=== PATIENT | female | born 1945 | race Caucasian/White ===

== ENCOUNTER 2016-04-25 20:42 | Inpatient (IN) | payer MEDICARE, OTHER ==
[~2016-04-25] VITALS: Ht 170.2 cm; Wt 77.2 kg
[2016-04-25 20:50] VITALS: BP 146/63; PULSE 67; RESP 18; TEMP 98.3; O2SAT 95
--- NOTE | 2016-04-25 21:08 | PD ---
HPI Chief Complaint: Abnormal Results Time Seen by Provider: 20:45 Travel History International Travel<30 days: No Contact w/Intl Traveler<30days: No Traveled to known affect area: No History of Present Illness HPI The patient is 71 year old female who presents to the [facility] emergency department with a history of while walking to the beach tripping over a rock with her left foot landing on the right side of her head and right arm. The patient was initially transported to [facility]. The patient denies having any loss of consciousness, however she does not remember the fall. The patient reports having a headache and right arm pain. The patient reports that she has recently been started on a baby aspirin daily and is also on Plavix 75 mg a day. The patient denies having any open wounds. The patient was with her when this occurred. He denies her having any loss of consciousness. He reports that she has had repetitive questioning. The patient reports that she has a history of prior stroke with residual weakness of the right arm and right leg. The patient denies having any chest pain, shortness of breath. She reports having right-sided neck pain, however a CT scan of her C-spine was read as negative by the reading radiologist over at the [facility]. She denies having any other extremity pain other than in the right arm which is currently splinted. She denies having any abdominal pain. The patient is unsure when her tetanus was last updated. [facility] Past Medical History Narrative Medical The patient's past medical history is significant for cerebrovascular accident year and a half ago, history of hyperlipidemia, hypertension, chronic pain in the right upper extremity related to her prior stroke, history of acid reflux, history of depression Depression: Yes High Cholesterol: Yes Cerebrovascular Accident: Yes (no deficits) GERD: Yes Hypertension: Yes : 2 Para: 2 Past Surgical History Narrative Surgical The patient's past surgical history is significant for a left finger pinning after fracture. Social History Alcohol Use: Yes (occassional) Tobacco Use: No Substance Use: No Allergies-Medications (Allergen,Severity, Reaction): Coded Allergies: Nitrofurantoin (Verified Allergy, Severe, Cough, 04/26/16) Reported Meds & Prescriptions Reported Meds & Active Scripts Active Reported Hydrochlorothiazide 25 Mg Tab 25 Mg PO DAILY Propranolol (Propranolol HCl) 20 Mg Tab 20 Mg PO DAILY Losartan (Losartan Potassium) 25 Mg Tab 25 Mg PO DAILY Clopidogrel (Clopidogrel Bisulfate) 75 Mg Tab 75 Mg PO DAILY Venlafaxine ER 24 HR (Venlafaxine HCl) 75 Mg Tab 75 Mg PO DAILY Simvastatin 40 Mg Tab 40 Mg PO HS Venlafaxine ER 24 HR (Venlafaxine HCl) 37.5 Mg Tab 37.5 Mg PO HS Review of Systems Except as stated in HPI: all other systems reviewed are Neg General / Constitutional: No: Fever Eyes: No: Visual changes HENT: Positive: Headaches, Neck Pain (right-sided neck), No: Neck Stiffness Cardiovascular: No: Chest Pain or Discomfort Respiratory: No: Shortness of Breath Gastrointestinal: No: Abdominal Pain Genitourinary: No: Dysuria Musculoskeletal: Positive: Myalgias, Arthralgias, Limited ROM, Edema, Pain Skin: No Rash Neurologic: No: Weakness Psychiatric: No: Depression Endocrine: No: Polydipsia Hematologic/Lymphatic: No: Easy Bruising Physical Exam Narrative General: The patient is a well-developed well-nourished female in no acute distress. Head and Neck exam: Head is normocephalic, evidence of some swelling, ecchymosis developing over the right cheek. There is no crepitus or step-off, no increased facial bone motility. Eyes: EOMI, pupils are equal round and reactive to light. Nose: Midline septum with pink mucous membranes Mouth: Dentition unremarkable. Moist mucus membranes. Posterior oropharynx is not erythematous. No tonsillar hypertrophy. Uvula midline. Airway patent. Neck: No palpable lymphadenopathy. No nuchal rigidity. No thyromegaly. The patient has tenderness on palpation along the right sternocleidomastoid muscle, however no spasm noted. No spinous process tenderness to palpation, no step- off or crepitus, no erythema or ecchymosis. Cardiovascular: Regular rate and rhythm without murmurs, gallops, or rubs. Lungs: Clear to auscultation bilaterally. No wheezes, rhonchi, or rales. Abdomen: Soft, without tenderness to palpation in all 4 quadrants of the abdomen. No guarding, rebound, or rigidity. Normal bowel sounds are audible. Extremities: No clubbing or cyanosis. The patient has some mild edema of the right hand. 2 + pulses in all 4 extremities. The patient has along the right arm splint in place. The patient has less than 3 second capillary refill of her digits. She has intact sensation over all fingertips. She is able to move her fingers without difficulty. Back: No spinous process tenderness to palpation. No costovertebral angle tenderness to palpation. Neurologic Exam: She is oriented to person, place, time, however not the events surrounding the accident and she cannot recall them. Cranial nerves 2-12 were intact on exam. Strength is 5/5 in all 4 extremities. No sensory deficits noted. Skin Exam: No rash noted. Intact skin that is warm and dry. Data Data Last Documented VS Vital Signs Date Time Temp Pulse Resp B/P Pulse Ox O2 Delivery O2 Flow Rate FiO2 04/25/16 20:50 98.3 67 18 146/63 95 Orders Type And Screen (04/25/16 21:05) Platelet Pheresis (04/25/16 21:05) Blood Product Administration .UPON TRANSFUSION (04/25/16 21:05) Sodium Chlor 0.9% 250 Ml Inj (Ns 250 Ml (04/25/16 21:15) Admit Order (Ed Use Only) (04/25/16 21:26) MDM Medical Decision Making Medical Screen Exam Complete: Yes Emergency Medical Condition: Yes Medical Record Reviewed: Yes Differential Diagnosis Evolving Intracranial hemorrhage, versus facial contusion, versus facial fracture Narrative Course During the course of the patients emergency department visit, the patients history, examination, and differential diagnosis were reviewed with the patient. The patient had IV access obtained and blood work sent for analysis. The records from [facility] were reviewed. A call was placed out to the accepting trauma surgeon, Dr. Turner. He will be seeing the patient in the emergency department. He requested that a 10 pack of platelets be ordered given the patient on Plavix and baby aspirin. I then spoke to the neurosurgeon on-call, Dr. Green regarding this patient's case. He will requested that the patient have a CT scan of the brain prior to going up to the intensive care unit to evaluate for possible evolving hemorrhage. The patient was provided a transfusion of platelets. The patients laboratory studies were reviewed from the [facility] and showed a sodium of 137, potassium 3.9, chloride 96, CO2 30, glucose 128, BUN 14 , creatinine 0.60, alkaline phosphatase 96, AST 26, ALT 18, total bilirubin 0.4. The patient's white blood cell count is 14.3, hemoglobin 13.2, platelets 225 with neutrophils of 87.3, lymphocytes 7.4. PT 13.1, PTT 26.2, INR 1.0. Radiology studies were reviewed from [facility] and revealed a CT scan of the brain shows a 1 cm area of acute intraparenchymal hemorrhage contusion in the posterior left frontotemporal region. There is also a suggestion of a subtle minimal acute right frontal area subdural hematoma with thickness of 2 mm , no hydrocephalus or midline shift. The patient has a left thalamic lacunar infarct age indeterminate possibly chronic. CT scan of the C-spine shows diffuse osseous demineralization without acute fracture, diffuse spondylosis with associated neural foraminal narrowing, CT scan of the facial bones shows no acute facial bone fracture, right humerus x-ray reveals osteopenia, comminuted displaced fractures involving the proximal radius and ulna. Chest x- ray shows no acute process, pelvic x-ray shows osteopenia with mild osteitis pubis, otherwise intact pelvis. The patients results were discussed with the patient, including the plan of care. I explained that further testing and/ or monitoring is indicated based on the patients history, examination, and/ or laboratory findings. Therefore, I recommended admission for additional evaluation. The patient expressed understanding and was agreeable with this plan. The patient was admitted to the hospital in guarded condition and sent to a bed under the care of the trauma surgeon, Dr. Turner Physician Communication Physician Communication The patient's case was discussed with Dr. Turner at approximately 9:05 PM. He requested that a 10 pack of platelets be ordered to be administered for the patient. He will be in to see the patient shortly. The patient's case was also discussed with Dr. Green, the neurosurgeon by speakerphone while he was in the OR regarding this patient's case. He did agree to see the patient consultation. He recommended a CT scan of the brain be repeated in this patient on the way up to the intensive care unit. Diagnosis Primary Impression: Intracranial hemorrhage Additional Impression: Closed right arm fracture Qualified Code: S42.301A - Closed right arm fracture, initial encounter Admitting Information Admitting Physician Requests: Admit Lenka Nascimento MD Apr 25, 2016 21:08
[2016-04-25] MEDS ORDERED: SODIUM CHLOR 0.9% 250 ML INJ 250 ML IV ONE (21:15)
[2016-04-25] MEDS ORDERED: GABA600T PO (21:15)
[2016-04-25] MEDS ORDERED: VENL75TA2 PO (21:15)
[2016-04-25] MEDS ORDERED: LOSA25TA PO (21:15)
[2016-04-25] MEDS ORDERED: VENL37.54 PO (21:15)
[2016-04-25] MEDS ORDERED: HYDR25TA5 PO (21:15)
[2016-04-25] MEDS ORDERED: PROP20TA3 PO (21:15)
[2016-04-25] MEDS ORDERED: SIMV40TA PO (21:15)
[2016-04-25] MEDS ORDERED: GABA300C5 PO (21:15)
[2016-04-25] MEDS ORDERED: CLOP75TA PO (21:15)
--- NOTE | 2016-04-25 22:15 | HHI.HP ---
HPI Service Critical Care Medicine Primary Care Physician Non-Staff Admission Diagnosis Intracranial hemorrhage, right arm fracture Diagnosis: Chief Complaint: Headache, Right arm pain Travel History International Travel<30 Days: No Contact w/Intl Traveler <30 Da: No Traveled to Known Affected Are: No History of Present Illness 71-year-old woman tripped and fell walking down the beach. She denies loss of consciousness but is amnestic of the event and was perseverating after it happened. She is evaluated at outside hospital where they found right radius and ulnar fracture as well as a 2 mm subdural hematoma. She was transferred to [place] for definitive care. Patient arrived alert and oriented she had right periorbital ecchymosis her right upper extremity was in a sling. Review of Systems Constitutional: DENIES: Diaphoretic episodes, Fatigue, Fever, Weight gain, Weight loss, Chills, Dizziness, Change in appetite, Night Sweats Endocrine: DENIES: Abnorml menstrual pattern, Heat/cold intolerance, Polydipsia , Polyuria, Polyphagia Eyes: DENIES: Blurred vision, Diplopia, Eye inflammation, Eye pain, Vision loss , Photosensitivity, Double Vision Ears, nose, mouth, throat: DENIES: Tinnitus, Hearing loss, Vertigo, Nasal discharge, Oral lesions, Throat pain, Hoarseness, Ear Pain, Running Nose, Epistaxis, Sinus Pain, Toothache, Odynophagia Respiratory: DENIES: Apneas, Cough, Snoring, Wheezing, Hemoptysis, Sputum production, Shortness of breath Cardiovascular: DENIES: Chest pain, Palpitations, Syncope, Dyspnea on Exertion , PND, Lower Extremity Edema, Orthopnea, Claudication Gastrointestinal: DENIES: Abdominal pain, Black stools, Bloody stools, Constipation, Diarrhea, Nausea, Vomiting, Difficulty Swallowing, Anorexia Genitourinary: DENIES: Abnormal vaginal bleeding, Dysmenorrhea, Dyspareunia, Sexual dysfunction, Urinary frequency, Urinary incontinence, Urgency, Hematuria , Dysuria, Nocturia, Vaginal discharge Musculoskeletal: COMPLAINS OF: Joint pain (right arm pain from the fall) Integumentary: DENIES: Abnormal pigmentation, Pruritus, Rash, Nail changes, Breast masses, Breast skin changes, Nipple discharge Hematologic/lymphatic: COMPLAINS OF: Bruising (right face) Immunologic/allergic: DENIES: Eczema, Urticaria Neurologic: COMPLAINS OF: Localized weakness (chronic pain related to her prior CVA) Psychiatric: COMPLAINS OF: Depression Past Family Social History Allergies: Coded Allergies: Nitrofurantoin (Verified Allergy, Unknown, 04/25/16) Past Medical History Stroke, hypertension, reflux, depression, right upper extremity neuropathy Past Surgical History Left hand surgery for a fracture Reported Medications Hydrochlorothiazide 25 Mg Tab 25 Mg PO DAILY Propranolol (Propranolol HCl) 20 Mg Tab 20 Mg PO DAILY Losartan (Losartan Potassium) 25 Mg Tab 25 Mg PO DAILY Clopidogrel (Clopidogrel Bisulfate) 75 Mg Tab 75 Mg PO DAILY Venlafaxine ER 24 HR (Venlafaxine HCl) 75 Mg Tab 75 Mg PO DAILY Simvastatin 40 Mg Tab 40 Mg PO HS Gabapentin 600 Mg Tab 600 Mg PO HS Gabapentin 300 Mg Cap 300 Mg PO DAILY Venlafaxine ER 24 HR (Venlafaxine HCl) 37.5 Mg Tab 37.5 Mg PO HS Family History Reviewed and not relevant Social History Denies alcohol tobacco or drug use Physical Exam Vital Signs Vital Signs Date Time Temp Pulse Resp B/P Pulse Ox O2 Delivery O2 Flow Rate FiO2 04/25/16 20:50 98.3 67 18 146/63 95 Physical Exam Open partial well-nourished 71-year-old woman in no acute distress Head - right periorbital ecchymosis pupils equal round reactive to light a short for movements intact sclerae nonicteric and conjunctiva is pink Neck - trachea is midline there is no swelling or palpable masses Chest - lungs clear to auscultation bilaterally, heart regular rate and rhythm, there is no chest wall tenderness or crepitus to palpation Abdomen - soft nontender nondistended Pelvis - stable nontender femoral pulses are palpable bilaterally Extremities - right upper extremity is in a splint, she has good capillary refill, no clubbing cyanosis or edema dorsalis pedis pulses are palpable bilaterally Psychiatric - mood and affect are appropriate Neurologic - cranial nerves II through XII appear grossly intact with no focal neurologic deficit, right upper extremity however is immobilized Assessment and Plan Assessment and Plan 71-year-old woman with a closed right radius and ulnar fracture and a subdural hematoma on aspirin and Plavix - Patient will be admitted to the trauma ICU for serial neurologic exams and continuous hemodynamic monitoring - Neurosurgery was consult and made aware of her condition should she deteriorate. A repeat head CT will be performed now and again in the morning to follow her subdural hematoma - Orthopedic surgery will be consulted regarding her radius and ulnar fractures , she'll be made nothing by mouth after midnight in anticipation of surgical intervention - Patient will be given IV pain medication and antiemetics as needed - She'll be placed on her home medications except for the aspirin and Plavix which will be held until cleared by neurosurgery to resume Code Status Full code Discussed Condition With Patient, at the bedside, ER nursing, ER attending Apolinar Turner MD Apr 25, 2016 22:15
[2016-04-25] MEDS ORDERED: MISCELLANEOUS NURSING INFORMATION XX SCH (22:30)
[2016-04-25] MEDS ORDERED: SODIUM CHLORIDE 0.9% FLUSH 5 ML FLUSH IVF PRN (22:30)
[2016-04-25] MEDS ORDERED: MAGNESIUM HYDROXIDE SUSP 30 ML CUP PO PRN (22:30)
[2016-04-25] MEDS ORDERED: CHLORHEXIDINE GLUCONATE 2 % 1 PACK (2 CLOTHS) TOP PRN (22:30)
--- NOTE | 2016-04-25 22:34 | RADRPT ---
EXAM DATE/TIME: 04/25/2016 22:07 [place] COMPARISON: No previous studies available for comparison. INDICATIONS : Fall with trauma to right side of head. RADIATION DOSE: 56.35 CTDIvol (mGy) MEDICAL HISTORY : Cerebrovascular disease. Hypertension. SURGICAL HISTORY : None. ENCOUNTER: Initial ACUITY: 1 day PAIN SCALE: 6/10 LOCATION: Right cranial TECHNIQUE: Multiple contiguous axial images were obtained of the head. Using automated exposure control and adj ustment of the mA and/or kV according to patient size, radiation dose was kept as low as reasonably a chievable to obtain optimal diagnostic quality images. FINDINGS: Faintly increased density measuring about 16 mm in size seen in the left posterior temporal lobe. The re are moderate severity, chronic areas of low attenuation in both hemispheres periventricular white matter. No evidence of an acute ischemic event. The skull is intact. CONCLUSION: 1. 16mm faintly increased density in the posterior left temporal lobe and may represent a small paren chymal contusion. An underlying partly calcified mass could appear similar. Clinical surveillance and a followup nonemergent MRI of the brain with and without contrast recommended. 2. Otherwise no evidence of an acute intracranial abnormality. Chronic white matter changes are noted . Antonio Lau MD on April 25, 2016 at 22:30 Board Certified Radiologist. This report was verified electronically.
[2016-04-25 23:05] VITALS: BP 148/69; PULSE 70; RESP 16; O2SAT 98
[2016-04-25] MEDS: ONDANSETRON HCL 4 MG/2 ML VIAL IV PRN (23:07)
[2016-04-25] MEDS: GABAPENTIN 300 MG CAP PO SCH (23:08)
[2016-04-25] MEDS: HYDROmorphone HCL PF 1 MG/ML VIAL IVP PRN (23:08)
[2016-04-25] MEDS: levETIRAcetam 500 MG TAB PO SCH (23:12)
--- NOTE | 2016-04-25 23:37 | PD.CONS ---
History of Present Illness Service Neurosurgery Consult Requested By Gen. surgery trauma service Reason for Consult Traumatic brain injury Primary Care Physician Non-Staff Diagnoses: History of Present Illness 71-year-old female who reportedly tripped and fell while walking on the beach this evening. No definite loss of consciousness reported. She was transferred from [facility] for evaluation after a CT scan of the head revealed a small subdural hematoma. She has also sustained a right radius and ulna fracture. She is being admitted to the surgery trauma service. No seizures or emesis reported. Review of Systems Constitutional: DENIES: Fatigue, Fever, Chills, Dizziness Eyes: DENIES: Blurred vision, Diplopia Ears, nose, mouth, throat: DENIES: Tinnitus, Hearing loss, Vertigo, Ear Pain, Running Nose Respiratory: DENIES: Apneas, Cough, Shortness of breath Cardiovascular: DENIES: Chest pain, Palpitations Gastrointestinal: DENIES: Abdominal pain, Constipation, Diarrhea, Nausea, Vomiting Musculoskeletal: COMPLAINS OF: Joint pain, Back pain, Neck pain Neurologic: COMPLAINS OF: Headache, Paresthesias, DENIES: Abnormal gait, Seizures, Speech Problems, Poor Balance Psychiatric: COMPLAINS OF: Confusion, DENIES: Anxiety Past Family Social History Allergies: Coded Allergies: Nitrofurantoin (Verified Allergy, Unknown, 04/25/16) Past Medical History Hypertension previous CVA-probable left thalamus per history with residual right facial and upper and lower extremity numbness and dysesthesia Depression GERD Hyperlipidemia Past Surgical History Previous hand surgery Reported Medications Reported Meds & Active Scripts Active Reported Hydrochlorothiazide 25 Mg Tab 25 Mg PO DAILY Propranolol (Propranolol HCl) 20 Mg Tab 20 Mg PO DAILY Losartan (Losartan Potassium) 25 Mg Tab 25 Mg PO DAILY Clopidogrel (Clopidogrel Bisulfate) 75 Mg Tab 75 Mg PO DAILY Venlafaxine ER 24 HR (Venlafaxine HCl) 75 Mg Tab 75 Mg PO DAILY Simvastatin 40 Mg Tab 40 Mg PO HS Gabapentin 600 Mg Tab 600 Mg PO HS Gabapentin 300 Mg Cap 300 Mg PO DAILY Venlafaxine ER 24 HR (Venlafaxine HCl) 37.5 Mg Tab 37.5 Mg PO HS Family History Her mother has had multiple CVAs Social History Does not smoke cigarettes or drink alcohol Physical Exam Vital Signs Vital Signs Date Time Temp Pulse Resp B/P Pulse Ox O2 Delivery O2 Flow Rate FiO2 04/25/16 23:05 70 16 148/69 98 Nasal Cannula 3 04/25/16 20:50 98.3 67 18 146/63 95 Physical Exam GENERAL: This is a well-nourished, well-developed patient, in no apparent distress. SKIN: No rashes, ecchymoses or lesions. Cool and dry. Edema right upper extremity HEAD: Atraumatic. Normocephalic. No temporal or scalp tenderness. EYES: Sclerae are clear and nonicteric ENT: Mild right facial edema and ecchymosis. No facial fracture or deformity. Tympanic membranes clear. No CSF otorrhea or rhinorrhea NECK: Minimal right posterior neck tenderness. No neck edema or ecchymosis. Normal cervical range of motion CARDIOVASCULAR: Regular rate and rhythm without murmurs, gallops, or rubs. RESPIRATORY: Clear to auscultation. Breath sounds equal bilaterally. No wheezes , rales, or rhonchi. GASTROINTESTINAL: Abdomen soft, non-tender, nondistended. No hepato-splenomegaly , or palpable masses. No guarding. MUSCULOSKELETAL: Right upper extremity in sling. Positive mild edema and ecchymosis right hand and forearm. No tenderness prior left hip knee and ankle. Mild tenderness right posterior neck and minimal tenderness right low back which she states has been present for a few days. NEUROLOGICAL: Awake and alert Oriented to hospital, month, name. She answers questions regarding her past medical history with mild difficulty. She sometimes asks her for help answering questions. Occasional perseveration-asks the same questions multiple times. Speech is otherwise clear and appropriate. Follow simple commands well No evidence of anxiety or depression Pupils are 3 mm mildly reactive to light Extraocular movements, visual frank to confrontation, facial motor, tongue, palate, and sternocleidomastoid testing are intact. Normal bilateral shoulder shrug. Mild numbness right lateral face which she states is chronic from previous CVA. Mild paresthesia and dysesthesia right hand and foot which she states is chronic from previous CVA. Otherwise normal sensory function in all extremities. 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 Right upper extremity not fully tested due to orthopedic injuries. Left Malissa's response absent No ankle clonus Plantar responses are neutral Imaging 04/25/2016 CT scan head [facility] images are reviewed. The study reveals a small approximately 16 mm mixed density left posterior temporal region most consistent with contusion without significant mass effect. This may also represent a small area of chronic calcification in region of previous CVA. There is a question of a trace extra-axial hematoma at the right posterior frontoparietal region. Assessment and Plan Assessment and Plan Impression: 1. Probable traumatic brain injury with findings consistent with small left temporal contusion, although CT findings could represent a area of chronic calcification. Recommendations: 1. Intensive surgical care observation. 2. Follow-up CT scan in approximately 48-72 hours depending on clinical course. May consider MRI imaging to help delineate contusion versus chronic calcification if necessary. 3. Avoid aspirin and Plavix at present as well as chemical DVT prophylaxis. 4. May mobilize out of bed and advance diet as tolerated from neurosurgical standpoint. Higinio Green MD Apr 25, 2016 23:37
[2016-04-26] VITALS (10 sets, daily range): BP systolic 113–156; BP diastolic 55–69; PULSE 58–104; RESP 16–24; TEMP 98.2–98.6; O2SAT 92–98
[2016-04-26] MEDS: HYDROmorphone HCL PF 1 MG/ML VIAL IVP PRN ×5 (03:14→23:05)
[2016-04-26] MEDS ORDERED: CHLORHEXIDINE GLUCONATE 2 % 1 PACK (2 CLOTHS) TOP SCH (04:00)
[2016-04-26] MEDS: ONDANSETRON HCL 4 MG/2 ML VIAL IV PRN ×2 (07:25→14:03)
[2016-04-26] MEDS: LOSARTAN 25 MG TAB PO SCH ×2 (09:00→11:54)
[2016-04-26] MEDS: VENLAFAXINE HCL XR 75 MG CAP PO SCH ×2 (09:00→11:54)
[2016-04-26] MEDS: GABAPENTIN 300 MG CAP PO SCH ×2 (09:00→21:00)
[2016-04-26] MEDS: levETIRAcetam 500 MG TAB PO SCH ×2 (10:48→22:18)
[2016-04-26] MEDS: PROPRANOLOL HCL 20 MG TAB PO SCH (10:48)
--- NOTE | 2016-04-26 10:53 | PD.ORT.PN ---
Subjective Subjective Remarks s/p fall on beach. right shoulder, elbow, wrist pain. Objective Vitals Vital Signs Date Time Temp Pulse Resp B/P Pulse Ox O2 Delivery O2 Flow Rate FiO2 04/26/16 07:06 104 18 156/69 93 Room Air 04/25/16 23:05 70 16 148/69 98 Nasal Cannula 3 04/25/16 20:50 98.3 67 18 146/63 95 I/O 04/25/16 04/25/16 04/25/16 04/26/16 04/26/16 04/26/16 06:59 14:59 22:59 06:59 14:59 22:59 Intake Total 93 ml Output Total 600 ml Balance 93 ml -600 ml Intake Platelets 93 ml Output Urine Total 600 ml Imaging Last [address] 04/25/162135 Signed Impressions: Service Date/Time: Monday, April 25, 2016 22:07 - CONCLUSION: 1. 16mm faintly increased density in the posterior left temporal lobe and may represent a small parenchymal contusion. An underlying partly calcified mass could appear similar. Clinical surveillance and a followup nonemergent MRI of the brain with and without contrast recommended. 2. Otherwise no evidence of an acute intracranial abnormality. Chronic white matter changes are noted. Antonio Lau MD Objective Remarks RUE: + splint. pain with motion of shoulder and wrist. NVI to median and ulnar nerve. moderate swelling of hand. tenderness of radius Assessment & Plan Assessment and Plan 1) Right Proximal ulna/radius fx -resume diet -npo after MN -sign consents -surgery tomorrow -will order xrays of shoulder and wrist for reported pain Rubén Santillan Apr 26, 2016 10:53
--- NOTE | 2016-04-26 12:50 | MB ---
cc: ARIANE LOPEZ DATE OF CONSULTATION 04/26/2016 DATE OF 04/25/2016 REASON FOR CONSULTATION Right proximal ulna and right proximal radius fractures. HISTORY Savannah is a 71-year female who was walking on the beach. She tripped and fell. She landed on her outstretched right arm. She did hit her head. She was initially taken to [facility]. She was found to have a 2 mm subdural hematoma. She was also found to have right proximal radius and ulna fractures. She does not think she had loss of consciousness, but does not clearly recall the fall. Her only complaint now is her right arm and elbow. Pain is worse with movement and is improved with rest. PAST MEDICAL HISTORY ALLERGIES NITROFURANTOIN ILLNESSES 1. History of CVA 2. Hypertension 3. Reflux 4. Depression 5. Neuropathy SURGERIES Left hand fracture ORIF. MEDICATIONS 1. Hydrochlorothiazide 2. Propranolol 3. Losartan 4. Plavix 5. Simvastatin 6. Gabapentin 7. Venlafaxine SOCIAL HISTORY The patient denies alcohol, tobacco or drug use. FAMILY HISTORY Reviewed and is noncontributory. REVIEW OF SYSTEMS The patient denies headache, visual changes, neck pain, chest pain, shortness of breast, abdominal pain, nausea, vomiting or recent weight loss. She complains of right arm pain. PHYSICAL EXAMINATION The patient is a well-developed, well-nourished 71-year female in no acute distress. She is awake and alert. She is alert and x3. VITAL SIGNS: Temperature 98.3, pulse 104, respirations 18, blood pressure is 156/69, O2 sat is 93% on three liters nasal cannula. HEAD: The patient does have some bruising of her face. EYES: Pupils are equal. NECK: Soft and nontender. Trachea is midline. ABDOMEN: Soft, nontender and nondistended. EXTREMITIES: Examination of the right arm reveals no tenderness around her shoulder. She is diffusely tender around the elbow and proximal forearm. All compartments are soft. She has intact sensation of her fingers. She has mild swelling around her wrist. Skin is intact. Radial pulses palpable. Examination of the left arm reveals no pain with shoulder, elbow or wrist motion. Skin is intact. Radial pulse is palpable. Sensation is grossly intact. Examination of the bilateral lower extremities reveals no pain with hip, knee or ankle motion. Skin is intact in both feet. Sensation is grossly intact in both feet. X-RAYS X-rays of right elbow were reviewed. X-rays reveal a displaced right proximal ulna and proximal radial neck fracture. IMPRESSION 1. Subdural hematoma 2. Right proximal radius and ulna fractures PLAN Treatment options were discussed with the patient. At this point, I would recommend open reduction, internal fixation of the right proximal radius and proximal ulna. The radial head fracture appears to be relatively small. The patient may subsequently need a radial head replacement. The risks of surgery include bleeding, infection, injury to arteries, nerves and blood vessels, elbow dislocation as well as medical complications including blood clot, stroke, heart attack and . All questions were answered. I will plan on surgery tomorrow. A mid-level provider in my office, nurse practitioner or PA, may see this patient on a follow-up basis and continue to implement the objective of this plan including: Starting or adjusting medications, injections of muscle, tendon, bursa or joints, cast application, orthotic or brace application, physical therapy, further radiographic studies including x-ray, MRI, CT, ultrasounds or bone scan, vascular studies, neurologic studies, or other specialist consultations, and proceeding with surgical management as appropriate. MD BATSHEVA Parham/MARYSOL /12:32 PM /12:41 PM KAVON
--- NOTE | 2016-04-26 13:17 | HHI.CCPN ---
Subjective Remarks/Hospital Course Patient doing well, no overnight issues. Admitted for right SDH, left IPH and right radius and ulna fracture. Objective Vital Signs Date Time Temp Pulse Resp B/P Pulse Ox O2 Delivery O2 Flow Rate FiO2 04/26/16 07:06 104 18 156/69 93 Room Air 04/25/16 23:05 3 04/25/16 20:50 98.3 Objective Remarks well-nourished 71-year-old woman in no acute distress Head - right periorbital ecchymosis pupils equal round reactive to light, sclerae nonicteric and conjunctiva is pink Chest - lungs clear to auscultation bilaterally, heart regular rate and rhythm, there is no chest wall tenderness or crepitus to palpation Abdomen - soft nontender nondistended Extremities - right upper extremity is in a splint, good capillary refill, no clubbing cyanosis or edema dorsalis pedis pulses are palpable bilaterally A/P Assessment and Plan 71-year-old woman with a closed right radius and ulnar fracture and a subdural hematoma on aspirin and Plavix - Continue ICU monitoring - Repeat head CT in AM - OR tomorrow with Ortho - Continue to hold ASA and Plavix until cleared by NS Apolinar Turner MD Apr 26, 2016 13:17 , she'll be made nothing by mouth after midnight in anticipation of surgical intervention - Patient will be given IV pain medication and antiemetics as needed - She'll be placed on her home medications except for the aspirin and Plavix which will be held until cleared by neurosurgery to resume Apolinar Turner MD Apr 26, 2016 13:17
[2016-04-26] MEDS ORDERED: ASPI81CH CHEW (14:17)
--- NOTE | 2016-04-26 15:20 | HHI.NSPN ---
History Chief Complaint: right-sided headache and neck pain Interval History 71-year-old female who reportedly tripped and fell forward on the beach on 2016 without loss of consciousness. Mild confusion and repetitive speech following the incident. Transferred from [facility] after initial CT scan revealed probable left temporal contusion. Exam Results Vital Signs Date Time Temp Pulse Resp B/P Pulse Ox O2 Delivery O2 Flow Rate FiO2 04/26/16 07:06 104 18 156/69 93 Room Air 04/25/16 23:05 3 04/25/16 20:50 98.3 Physical Examination Mild right frontal and facial contusion and ecchymosis. Minimal right periorbital edema. No CSF otorrhea or rhinorrhea. Mild tenderness right cervical paraspinous musculature. Right shoulder tenderness Right upper extremity in sling. Moderate right distal upper extremity edema and ecchymosis. Awake and alert Oriented X 3 Speech is clear Conversant and appropriate Follow simple commands well Answers questions appropriately Reasonable judgment and insight Recent and remote memory are intact No evidence of anxiety or depression Pupils are equal and reactive to accommodation. Extra-ocular movements, visual frank to confrontation, facial sensorimotor, tongue, palate, sternocleidomastoid testing, hearing to finger rub testing, and bilateral shoulder shrug are all intact. Sensation is intact to light touch in all extremities except right upper extremity not fully tested due to swelling in place. Strength normal major flexion and extension groups all extremities except right upper extremity not tested due to orthopedic injuries. Malissa's absent bilaterally No ankle clonus Plantar responses absent bilateral Fine motor movements intact upper extremities Lab, Micro, Other Results Laboratory Tests Test 04/25/16 04/25/16 04/26/16 22:41 22:46 09:00 Blood Type O POSITIVE O POSITIVE Antibody Screen NEGATIVE Blood Bank Comment Nasal Screen MRSA (PCR) NEGATIVE Medical Decision Making Impression and Plan Impression: 1. Concussion. 2. 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 Plan: Findings were discussed with the patient and her in the intensive surgical care unit. Plan follow-up CT scan head in the a.m. 04/27/16 Signs and symptoms to watch for discussed. Discussed with nursing staff. Continued none chemical DVT prophylaxis and hold antiplatelet agents pending follow-up CT scan. Higinio Green MD Apr 26, 2016 15:20
--- NOTE | 2016-04-26 17:42 | RADRPT ---
EXAM DATE/TIME: 04/26/2016 16:44 [facility] COMPARISON: No previous studies available for comparison. INDICATIONS : Right wrist pain after fall. MEDICAL HISTORY : None. SURGICAL HISTORY : None. ENCOUNTER: Initial ACUITY: 2 days PAIN SCORE: 8/10 LOCATION: Right wrist. FINDINGS: No fracture identified of the right wrist. Moderate osteoarthritis at the right first carpometacarpal joint. CONCLUSION: 1. No acute findings. Osteoarthritis of the first carpometacarpal joint. Quang Swenson MD on April 26, 2016 at 17:39 Board Certified Radiologist. This report was verified electronically.
--- NOTE | 2016-04-26 17:43 | RADRPT ---
EXAM DATE/TIME: 04/26/2016 16:50 [facility] COMPARISON: No previous studies available for comparison. INDICATIONS : Right shoulder pain after fall. MEDICAL HISTORY : None. SURGICAL HISTORY : None. ENCOUNTER: Initial ACUITY: 2 days PAIN SCORE: 8/10 LOCATION: Right shoulder. FINDINGS: Two view examination of the right shoulder demonstrates no evidence of fracture or dislocation. The glenohumeral and acromioclavicular joints are maintained. Bony mineralization is normal. CONCLUSION: Normal examination for a patient of this age. Quang Swenson MD on April 26, 2016 at 17:41 Board Certified Radiologist. This report was verified electronically.
[2016-04-26] MEDS ORDERED: diphenhydrAMINE HCL 50 MG/ML VIAL IV ONE (21:30)
[2016-04-26] MEDS: FAMOTIDINE 20 MG TAB PO SCH (22:16)
[2016-04-26] MEDS: DOCUSATE SODIUM 100 MG CAP PO SCH (22:19)
--- NOTE | 2016-04-26 23:44 | EKG ---
Date Performed: 04/26/2016 Time Performed: 02:30:31 PTAGE: 71 years EKG: Sinus rhythm NORMAL ECG NO PREVIOUS TRACING DOCTOR: Tin Christie Interpretating Date/Time 04/26/2016 23:41:05
[2016-04-27] VITALS (13 sets, daily range): BP systolic 149–188; BP diastolic 68–79; PULSE 62–67; RESP 10–26; TEMP 98.1–98.9; O2SAT 96–100
[2016-04-27] MEDS: HYDROmorphone HCL PF 1 MG/ML VIAL IVP PRN (02:44)
[2016-04-27 04:45] LABS: HEMATOCRIT 35.1 % (35.0-46.0); MEAN CELL VOLUME 91.4 FL (80.0-100.0); MEAN CORPUSCULAR HEMOGLOBIN 30.5 PG (27.0-34.0); MEAN CORPUSCULAR HGB CONC 33.3 % (32.0-36.0); PLATELET COUNT 261 TH/MM3 (150-450); RED BLOOD COUNT 3.84 MIL/MM3 (4.00-5.30); RED CELL DISTRIBUTION WIDTH 13.3 % (11.6-17.2); REVIEW FLAG FINAL; WHITE BLOOD COUNT 9.5 TH/MM3 (4.0-11.0)
--- NOTE | 2016-04-27 05:07 | RADRPT ---
EXAM DATE/TIME: 04/27/2016 04:38 [facility] COMPARISON: CT BRAIN W/O CONTRAST, April 25, 2016, 22:07. INDICATIONS : Follow up hemorrhage. RADIATION DOSE: 65.28 CTDIvol (mGy) MEDICAL HISTORY : Cerebrovascular disease. Hypertension. SURGICAL HISTORY : None. ENCOUNTER: Subsequent ACUITY: 2 days PAIN SCALE: 4/10 LOCATION: cranial TECHNIQUE: Multiple contiguous axial images were obtained of the head. Using automated exposure control and adj ustment of the mA and/or kV according to patient size, radiation dose was kept as low as reasonably a chievable to obtain optimal diagnostic quality images. FINDINGS: Unchanged appearance when compared to the prior study. A subtle small area of high attenuation is see n within the left temporal lobe. This is less than 1 cm in size. Periventricular low attenuation baez ge noted involving both cerebral hemispheres. A small chronic lacunar infarction involving the left t halamus. Ventricles are normal in size. Paranasal sinuses and mastoid air cells are clear. Calvarium is intact. CONCLUSION: 1. Stable focus of high attenuation involving the left temporal lobe. This could relate to a small in traparenchymal hemorrhage. A followup outpatient MRI is suggested to further characterize this lesion if this persists. Arash Velazquez Jr., MD on April 27, 2016 at 5:03 Board Certified Radiologist. This report was verified electronically.
[2016-04-27 05:15] LABS: BICARBONATE 30.6 MEQ/L (21.0-32.0); MAGNESIUM 2.2 MG/DL (1.5-2.5); POTASSIUM 3.4 MEQ/L (3.5-5.1)
[2016-04-27] MEDS ORDERED: POTASSIUM CHLOR 40 MEQ PREMIX 100 ML IV ONE (06:30)
[2016-04-27] MEDS ORDERED: ACETAMINOPHEN 1000 MG/100 ML VIAL IV ONE (06:51)
[2016-04-27] MEDS ORDERED: GENTAMICIN SULFATE 80 MG/2 ML VIAL ONE (07:21)
[2016-04-27] MEDS ORDERED: ceFAZolin 2 GM PREMIX 50 ML ONE (07:48)
[2016-04-27] MEDS ORDERED: SODIUM CHLOR 0.9% 250 ML INJ 250 ML ONE (07:48)
[2016-04-27] MEDS ORDERED: VANCOMYCIN HCL 1000 MG VIAL ONE (07:48)
[2016-04-27] MEDS ORDERED: SUGAMMADEX SODIUM 200 MG/2 ML VIAL IV PUSH ONE ×2 (08:44)
[2016-04-27] MEDS ORDERED: ARTIFICIAL TEARS OPTH OINT 3.5 APPLIC/3.5 GM TUBO ONE (08:44)
[2016-04-27] MEDS: LOSARTAN 25 MG TAB PO SCH (09:00)
[2016-04-27] MEDS: FAMOTIDINE 20 MG TAB PO SCH ×2 (09:00→20:25)
[2016-04-27] MEDS: PROPRANOLOL HCL 20 MG TAB PO SCH (09:00)
[2016-04-27] MEDS: DOCUSATE SODIUM 100 MG CAP PO SCH ×2 (09:00→20:25)
[2016-04-27] MEDS: GABAPENTIN 300 MG CAP PO SCH ×2 (09:00→20:25)
[2016-04-27] MEDS: VENLAFAXINE HCL XR 75 MG CAP PO SCH (09:00)
[2016-04-27] MEDS: levETIRAcetam 500 MG TAB PO SCH ×2 (09:00→20:25)
[2016-04-27] MEDS ORDERED: BACITRACIN TOP OINT 15 GM TUBE ONE (09:10)
[2016-04-27] MEDS ORDERED: Post-op Orders (for Pharmacy) MISC XX ONE (09:15)
[2016-04-27] MEDS ORDERED: MORPHINE SULFATE 4 MG/ML INJ IV PUSH PRN (09:15)
[2016-04-27] MEDS ORDERED: HYDR-3288 PO (09:42)
--- NOTE | 2016-04-27 09:46 | MP ---
cc: DEVENDRA LPOEZ DATE OF SURGERY: 04/27/2016 PREOPERATIVE DIAGNOSIS 1. Right proximal ulna fracture. 2. Comminuted right radial head fracture. POSTOPERATIVE DIAGNOSIS 1. Right proximal ulna fracture. 2. Comminuted right radial head fracture. SURGEON Devendra Lopez MD ASSISTANTS Tomer Hyman PA-C, and Rubén Santillan PA-C The surgical procedure was assisted by my physician assistant distribution manager. My P.A. presence was necessary throughout this case for the manipulation and positioning of the surgical extremity. My P.A. was assisting me throughout the duration of this procedure. The skill set of a physician assistant distribution manager was medically necessary to complete this procedure. During the surgical case the surgical aide was working at the back table and the physician assistant distribution manager was directly assisting me. PROCEDURE 1. Open reduction, internal fixation of right proximal ulna. 2. Treatment of right radial head fracture with radial head replacement. ESTIMATED BLOOD LOSS 100 cc. ANESTHESIA General. DETAILS OF PROCEDURE Savannah is a 71-year-old female who had a fall resulting in a right proximal ulna and radius fracture. Informed consent was obtained. The operative site was marked. She was brought to the OR and placed on the OR table. She was given IV sedation and general endotracheal anesthesia. She was placed in the lateral decubitus position. She received IV antibiotics. A timeout procedure was performed. The right arm was prepped with alcohol followed by Hibiclens and draped in the usual sterile fashion. She received IV antibiotics prior to incision. The procedure began with a six-inch incision over the posterolateral aspect of the elbow. The subcutaneous tissue was dissected with Bovie. The proximal ulna was exposed. There was mild comminution. The fracture was cleaned with curets. The fracture is now reduced. The fracture fragments keyed into anatomic alignment. K-wires were used to hold provisional fixation. Multiplanar fluoroscopy confirmed well-aligned fracture. A Synthes proximal ulna plate was selected. The plate was provisionally held to bone with K-wires. 3.5 cortical screws were used to compress the plate to bone. Additional 2.7 cortical screws were used to compress the plate to bone. Multiple locking screws were now placed into the proximal end of the ulna. All screws were pre-drilled and pre-measured for appropriate length. The K-wires were removed. Fluoroscopy confirmed excellent alignment of fracture with well-placed hardware. Next, attention was turned to the radial head. The radial head was now visualized through a separate fascial incision over the lateral aspect of the elbow. The radial head was comminuted and in three fragments. At this point the decision was made to proceed with radial head replacement because of the comminution. The fracture fragments were removed. The radial head was sized and found to be a size 22. A Synthes radial head replacement system was utilized. Soft tissue was retracted. An oscillating saw was used to cut the radial neck. The proximal radius was now broached up to size 8. A trial head and neck were placed. The radial head was reduced. Care was taken not to over stuff the radial head. This was found to be a good fit. The patient had excellent range of motion. The trial components were removed. A size 8 Synthes radial head stem was now impacted into the proximal radius. A 22 +0 head was now placed on the stem and screwed into position. The radial head was again reduced. The patient had excellent range of motion with good stability. Fluoroscopy confirmed well-aligned components. The wound was thoroughly irrigated. The fascia was closed with #1 Vicryl. The subcutaneous tissue was closed with 3-0 Vicryl. The skin was closed with luis. Sterile dressings were applied. The patient was transferred to Recovery in stable condition. MD BATSHEVA Parham/MAHSA /9:27 AM /9:31 AM
[2016-04-27] MEDS ORDERED: ERGO1CAP30 PO (09:47)
[2016-04-27] MEDS ORDERED: *morphine SULFATE 8 MG/ML PERIprocedure ONLY ONE ×2 (09:48→09:56)
[2016-04-27] MEDS ORDERED: fentaNYL CITRATE 250 MCG/5 ML AMP ONE (09:53)
--- NOTE | 2016-04-27 09:54 | EKG ---
Date Performed: 04/27/2016 Time Performed: 06:34:30 PTAGE: 71 years EKG: Sinus rhythm with PVC(s) Lead(s) unsuitable for analysis: V5 Borderline ECG PREVIOUS TRACING : 04/26/2016 02.30 DOCTOR: Scooter Pearl Interpretating Date/Time 04/27/2016 09:53:50
[2016-04-27] MEDS: POTASSIUM CHLOR 20 MEQ PREMIX 100 ML IV SCH ×2 (10:00→10:15)
[2016-04-27] MEDS ORDERED: PNEUMOCOCCAL POLYVALENT INJ 25 MCG/0.5 ML SYR IM ONE (10:00)
[2016-04-27] MEDS ORDERED: DO NOT ADM ANY ANTICOAGULANT DRUGS XX PRN (10:30)
[2016-04-27] MEDS ORDERED: ERGOCALCIFEROL (VIT D2) 50,000 UNIT CAP PO SCH (11:00)
[2016-04-27] MEDS: ENALAPRILAT 1.25 MG/ML VIAL IV PRN (11:03)
[2016-04-27] MEDS ORDERED: ePHEDrine/NS 50 MG/5 ML SYR IV ONE (12:00)
[2016-04-27] MEDS ORDERED: PROPOFOL 200 MG/20 ML AMP IV ONE (12:00)
[2016-04-27] MEDS ORDERED: ONDANSETRON HCL 4 MG/2 ML VIAL IV PUSH ONE (12:00)
--- NOTE | 2016-04-27 15:23 | RADRPT ---
EXAM DATE/TIME: 04/27/2016 08:57 [facility] COMPARISON: No previous studies available for comparison. INDICATIONS : ORIF right olecranon and radial head replacement. MEDICAL HISTORY : None. SURGICAL HISTORY : None. ENCOUNTER: Subsequent ACUITY: 3 days PAIN SCORE: Non-responsive. LOCATION: Right elbow. FINDINGS: Two view examination of the right elbow demonstrates plate and screw fixation of the proximal ulna. P rosthetic replacement of the radial head. Normal alignment at the elbow joint. CONCLUSION: 1. Postoperative changes at the right elbow as above. Quang Swenson MD on April 27, 2016 at 15:21 Board Certified Radiologist. This report was verified electronically.
[2016-04-27] MEDS: ceFAZolin 2 GM PREMIX 50 ML IV SCH ×2 (15:41→23:00)
[2016-04-27] MEDS: ACETAMINOPHEN/HYDROcodone 325 MG/7.5 MG TAB PO PRN ×2 (15:58→22:59)
--- NOTE | 2016-04-27 16:34 | HHI.CCPN ---
Subjective Brief History This is a 71 year old female who was walking the beach and tripped and fell. She landed on her RIGHT side, striking her head and arm. (She was transferred from [facility] INJURIES: LEFT frontotemporal Intraparenchymal hemorrhage (1 cm) ? RIGHT frontal SDH RIGHT radius and ulnar fx 04/27/2016: ORIF RIGHT proximal ulna and radius. 24 Hour Review/Hospital Course 04/27/2016 PTD: 2 0900: On morning rounds pt was already off the floor for surgery. 1630: Pt awake, her is at her bedside applying lipstick to the patient. She awake, just worried about pain. Assisted OOB to Bedside commode for voiding. (Tati Devlin) Objective Vital Signs Date Time Temp Pulse Resp B/P Pulse Ox O2 Delivery O2 Flow Rate FiO2 04/27/16 16:00 98.9 66 22 149/68 96 04/27/16 15:19 Nasal Cannula 2.00 Intake and Output 04/26/16 04/26/16 04/26/16 07:59 15:59 23:59 Intake Total 93 ml 720 ml 1360 ml Output Total 600 ml 300 ml Balance -507 ml 720 ml 1060 ml (Tati Devlin) Result Diagram: 04/27/16 0421 04/27/16 0421 Imaging Last [address] 04/27/16 0600 Signed Impressions: Service Date/Time: Wednesday, April 27, 2016 04:38 - CONCLUSION: 1. Stable focus of high attenuation involving the left temporal lobe. This could relate to a small intraparenchymal hemorrhage. A followup outpatient MRI is suggested to further characterize this lesion if this persists. Arash Velazquez Jr., MD Elbow X-Ray 04/27/16 0000 Signed Impressions: Service Date/Time: Wednesday, April 27, 2016 08:57 - CONCLUSION: 1. Postoperative changes at the right elbow as above. Quang Swenson MD Objective Remarks GENERAL: This is a 71 year old female in bed post OR. SKIN: Warm and dry. HEAD: Atraumatic. Normocephalic. EYES: PERRLA. ENT: No nasal bleeding or discharge. Mucous membranes pink and moist. NECK: Trachea midline. No JVD. CARDIOVASCULAR: Regular rate and rhythm. RESPIRATORY: No accessory muscle use. Lungs are clear to auscultation. Breath sounds equal bilaterally. GASTROINTESTINAL: BS + x 4 quads. Abdomen soft, non-tender, nondistended. . MUSCULOSKELETAL: Extremities without cyanosis, or edema. No obvious deformities. RIGHT upper extremity in splint and wrapped with laura bandage. + peripheral pulses x 4 extremities. Warm with good capillary refill and sensation. MAEW. NEUROLOGICAL: Awake and alert. Normal speech. PSYCHIATRIC: Appropriate mood and affect; insight and judgment normal. (Tati Blake) Urinary Catheter Assessment Urinary Catheter: No (Tati Devlin) Vascular Central Line Catheter Vascular Central Line Catheter: No (Tati Devlin) Assessment and Plan Plan [place]: This is a 71 year old female who was walking on the beach and tripped and fell. She landed on her right side. INJURIES: LEFT frontotemporal Intraparenchymal hemorrhage (1 cm) ? RIGHT frontal SDH RIGHT radius and ulnar fx 04/27/2016: ORIF RIGHT proximal radius and ulnar Diet: Regular ADA diet. Tolerating po diet. Encourage good po intake. PULM: Encourage good pulmonary toileting. IS at bedside and pt encouraged to use. Rationale for use explained to patient, and verbalized understanding. PAIN MGT: [place] and Neurontin. Morphine IV for breakthrough. Activity: OOB as tolerated. NWB RUE. PT and OT ordered. GI proph: Pepcid po Bowel regimen: Colace and MOM. 0 BM. Added DVT proph: Mechanical VTE with SCDs. Chemical management on hold until f/u CT and cleared with neurosurgery DC Planning: Case management consulted for assistance with DC planning. Emotional support provided to patient and family at bedside and plan of care discussed. Discussed with RN at bedside. Patient is hemodynamically stable and being management on the med/surg floor. ( Tati Devlin) Attestation The exam, history, and the medical decision-making described in the above note were completed with the assistance of the mid-level provider. I reviewed and agree with the findings presented. I attest that I had a [id number] encounter with the patient on the same day, and personally performed and documented my assessment and findings in the medical record. Critical care time 40 minutes. (Monik Waller MD) Tati Devlin Apr 27, 2016 16:33 Monik Waller MD Apr 29, 2016 14:53
[2016-04-28] VITALS (10 sets, daily range): BP systolic 119–173; BP diastolic 58–77; PULSE 62–79; RESP 16–23; TEMP 97.1–98.3; O2SAT 94–100
[2016-04-28] MEDS: HYDROmorphone HCL PF 1 MG/ML VIAL IVP PRN ×2 (00:18→02:55)
[2016-04-28] MEDS: ENALAPRILAT 1.25 MG/ML VIAL IV PRN ×2 (00:18→09:27)
[2016-04-28 05:43] LABS: HEMATOCRIT 32.1 % (35.0-46.0); MEAN CELL VOLUME 91.7 FL (80.0-100.0); MEAN CORPUSCULAR HEMOGLOBIN 31.4 PG (27.0-34.0); MEAN CORPUSCULAR HGB CONC 34.2 % (32.0-36.0); PLATELET COUNT 257 TH/MM3 (150-450); RED CELL DISTRIBUTION WIDTH 13.3 % (11.6-17.2); REVIEW FLAG FINAL; WHITE BLOOD COUNT 10.7 TH/MM3 (4.0-11.0)
[2016-04-28 06:00] LABS: BICARBONATE 32.5 MEQ/L (21.0-32.0); MAGNESIUM 2.2 MG/DL (1.5-2.5); POTASSIUM 3.7 MEQ/L (3.5-5.1)
--- NOTE | 2016-04-28 07:10 | PD.ORT.PN ---
Subjective Subjective Remarks POD 1 s/p ORIF right ulna and radial head replacement -slightly confused. otherwise, doing well and pain controlled Objective Vitals Vital Signs Date Time Temp Pulse Resp B/P Pulse Ox O2 Delivery O2 Flow Rate FiO2 04/28/16 04:00 98.3 75 16 131/61 98 04/28/16 04:00 75 04/28/16 02:00 70 04/28/16 00:48 20 04/28/16 00:00 98.0 65 21 172/60 98 04/28/16 00:00 65 04/27/16 23:59 18 04/27/16 22:00 67 04/27/16 21:02 96 Nasal Cannula 2.00 04/27/16 20:00 65 04/27/16 20:00 98.1 65 26 153/69 96 04/27/16 19:00 99 Nasal Cannula 2.00 04/27/16 18:00 67 04/27/16 16:00 98.9 66 22 149/68 96 04/27/16 16:00 66 04/27/16 15:19 99 Nasal Cannula 2.00 04/27/16 14:00 62 04/27/16 12:00 98.5 67 14 178/77 99 04/27/16 12:00 62 04/27/16 11:00 98.5 62 10 188/79 100 04/27/16 11:00 62 04/27/16 10:30 98.4 64 15 152/54 97 Nasal Cannula 3 04/27/16 10:15 62 15 152/56 97 Nasal Cannula 3 04/27/16 10:01 15 04/27/16 10:00 63 15 158/72 97 Nasal Cannula 3 04/27/16 09:53 15 04/27/16 09:45 94 15 158/72 92 Nasal Cannula 3 04/27/16 09:41 97.1 81 14 177/85 98 Nasal Cannula 3 I/O 04/27/16 04/27/16 04/27/16 04/28/16 04/28/16 04/28/16 07:00 15:00 23:00 07:00 15:00 23:00 Intake Total 0 ml 1050 ml 650 ml 1000 ml Output Total 200 ml 1200 ml 1350 ml Balance 0 ml 850 ml -550 ml -350 ml Intake Oral 0 ml 250 ml 500 ml 800 ml IV Total 300 ml 150 ml 200 ml Other 500 ml Output Urine Total 100 ml 1200 ml 1350 ml Estimated Blood Loss 100 ml # Voids 2 4 5 Result Diagram: 04/28/168 04/28/168 Imaging Last [address] 04/25/162135 Signed Impressions: Service Date/Time: Monday, April 25, 2016 22:07 - CONCLUSION: 1. 16mm faintly increased density in the posterior left temporal lobe and may represent a small parenchymal contusion. An underlying partly calcified mass could appear similar. Clinical surveillance and a followup nonemergent MRI of the brain with and without contrast recommended. 2. Otherwise no evidence of an acute intracranial abnormality. Chronic white matter changes are noted. Antonio Lau MD Objective Remarks RUE: + splint. moderate swelling of hand and fingers. NVI to median and ulnar nerve. Assessment & Plan Assessment and Plan 1) Right Proximal ulna/radius fx s/p ORIF and radial head replacement - POD 1 -NWB -maintain splint -keep clean and dry -plan for discharge home when cleared medically -f/ui with Rhina or JAILYN in 2 weeks Rubén Santillan Apr 28, 2016 07:10
[2016-04-28] MEDS: ceFAZolin 2 GM PREMIX 50 ML IV SCH (08:03)
[2016-04-28] MEDS: DOCUSATE SODIUM 100 MG CAP PO SCH ×2 (08:03→21:16)
[2016-04-28] MEDS: FAMOTIDINE 20 MG TAB PO SCH ×2 (08:04→21:16)
[2016-04-28] MEDS: VENLAFAXINE HCL XR 75 MG CAP PO SCH (08:04)
[2016-04-28] MEDS: levETIRAcetam 500 MG TAB PO SCH ×2 (08:04→21:16)
[2016-04-28] MEDS: PROPRANOLOL HCL 20 MG TAB PO SCH (08:04)
[2016-04-28] MEDS: GABAPENTIN 300 MG CAP PO SCH ×2 (08:04→21:00)
[2016-04-28] MEDS: LOSARTAN 25 MG TAB PO SCH (08:04)
[2016-04-28] MEDS: POLYETHYLENE GLYCOL 17 GM PKG PO SCH (09:32)
[2016-04-28] MEDS: ACETAMINOPHEN/HYDROcodone 325 MG/7.5 MG TAB PO PRN ×3 (09:42→21:16)
--- NOTE | 2016-04-28 09:46 | HHI.NSPN ---
History Chief Complaint: right-sided headache and neck pain Interval History 71-year-old female who reportedly tripped [place] the beach on 2016 without loss of consciousness. Mild confusion and repetitive speech following the incident. Transferred from [facility] after initial CT scan revealed probable left temporal contusion. Exam Results Vital Signs Date Time Temp Pulse Resp B/P Pulse Ox O2 Delivery O2 Flow Rate FiO2 04/28/16 08:18 100 Nasal Cannula 2.00 04/28/16 04:00 98.3 75 16 131/61 Intake and Output 04/27/16 04/27/16 04/28/16 08:00 16:00 00:00 Intake Total 0 ml 1050 ml 650 ml Output Total 200 ml 1200 ml Balance 0 ml 850 ml -550 ml Physical Examination Mild right frontal and facial contusion and ecchymosis. Minimal right periorbital edema. No CSF otorrhea or rhinorrhea. Mild tenderness right cervical paraspinous musculature. Right shoulder tenderness Right upper extremity in sling. Moderate right distal upper extremity edema and ecchymosis. Awake and alert Oriented X place, month, year, president. She knows her home address. The patient and her indicate that she was more confused this morning, thought that she was home and talking to a neighbor when she woke up. Still that this mildly confused according to the patient's . Speech is clear Conversant and appropriate Follow simple commands well Answers questions appropriately Reasonable judgment and insight Recent and remote memory are intact No evidence of anxiety or depression Pupils are equal and reactive to accommodation. Extra-ocular movements, visual frank to confrontation, facial sensorimotor, tongue, palate, sternocleidomastoid testing, hearing to finger rub testing, and bilateral shoulder shrug are all intact. Sensation is intact to light touch in all extremities except right upper extremity not fully tested due to swelling in place. Strength normal major flexion and extension groups all extremities except right upper extremity not tested due to orthopedic injuries. Malissa's absent bilaterally No ankle clonus Plantar responses absent bilateral Fine motor movements intact left upper extremity-difficult to test right upper extremity due to orthopedic injuries Lab, Micro, Other Results 04/27/16 CT scan head images reviewed by the undersigned. Small area of increased density left mid temporal lobe appears slightly improved compared to the patient's initial CT scan head. Head CT 04/27/16 0600 Signed Impressions: Service Date/Time: Wednesday, April 27, 2016 04:38 - CONCLUSION: 1. Stable focus of high attenuation involving the left temporal lobe. This could relate to a small intraparenchymal hemorrhage. A followup outpatient MRI is suggested to further characterize this lesion if this persists. Arash Velazquez Jr., MD Elbow X-Ray 04/27/16 0000 Signed Impressions: Service Date/Time: Wednesday, April 27, 2016 08:57 - CONCLUSION: 1. Postoperative changes at the right elbow as above. Quang Swenson MD Laboratory Tests Test 04/28/16 04:28 White Blood Count 10.7 TH/MM3 Red Blood Count 3.50 MIL/MM3 Hemoglobin 11.0 GM/DL Hematocrit 32.1 % Mean Corpuscular Volume 91.7 FL Mean Corpuscular Hemoglobin 31.4 PG Mean Corpuscular Hemoglobin 34.2 % Concent Red Cell Distribution Width 13.3 % Platelet Count 257 TH/MM3 Mean Platelet Volume 7.9 FL Sodium Level 138 MEQ/L Potassium Level 3.7 MEQ/L Chloride Level 100 MEQ/L Carbon Dioxide Level 32.5 MEQ/L Anion Gap 6 MEQ/L Blood Urea Nitrogen 10 MG/DL Creatinine 0.51 MG/DL Estimat Glomerular Filtration 120 ML/MIN Rate Random Glucose 96 MG/DL Calcium Level 8.6 MG/DL Magnesium Level 2.2 MG/DL Medical Decision Making Impression and Plan Impression: 1. Concussion. 2. 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 Plan: Findings were discussed with the patient and her in the intensive surgical care unit. Patient reportedly had a MRI or CT scan of the head approximately 3 months ago as part of a continuing stroke evaluation. This study was done in [place]. We will try to obtain the study for review and comparison to the current imaging study. Stable for transfer to regular floor. Continue observation due to increased confusion this morning. Patient denies alcohol use. Signs and symptoms to watch for discussed. Discussed with nursing staff. Continued non- chemical DVT prophylaxis and hold antiplatelet agents . Higinio Green MD Apr 28, 2016 09:46
[2016-04-28] MEDS ORDERED: LOSARTAN 25 MG TAB PO ONE (11:00)
--- NOTE | 2016-04-28 12:39 | PD.HHIRCNE ---
Disclaimer Patient was given an explanation of the nature and purpose of the evaluation. Patient agreed to proceed with the evaluation and treatment plan. History Reason for Referral This patient is a 71 year old right-handed woman status post traumatic brain injury secondary to a fall on 04/25/2016. Patient tripped on a rock and fell while walking on the beach. Reportedly, no LOC but amnestic for the event. She was taken to a local hospital and transferred to [place]. Head CT revealed right SDH and left frontotemporal parenchymal hemorrhage, with additional injuries including right radius and ulnar fractures. Additional Psychosocial Hx Smoking Status: Unknown If Ever Smoked Hx Caffeine Use: Yes (COFFEE/TEA) Alcohol Use: Denies Use Hx Substance Use: No Level of Education: Vocational/Technical Employment Status: Retired Prior Living Setting: Home Dominant Hand: Right Overall Comments The patient is from [place] and she and her winter here in [place]. She has a high school education with some vocational training, and had been working for her . She is . Past Surgical/Medical History Past Surgery: Yes Major surgery in last 100 days: Unknown Hx Anesthesia Reactions: No Hx Orthopedic Surgery: Yes (pin in left finger) Hx Cardiac Surgery: No Hx Chest Surgery: No Hx Abdominal Surgery: No Hx Genitourinary Surgery: No Hx Gynecologic Surgery: No Hx Endocrine Surgery: No Hx Eye Surgery: No Hx Ear Surgery: No Hx Oral Surgery: No History of Transplant: No Hx of Neuro Prob: Yes (FIBROMYALGIA) Hx Seizures: No Hx Falls: Yes (04/25/16) Hx Cerebrovascular Accident: Yes Hx Numbness: Yes (RIGHT HAND) Hx of Musculoskeletal Pro: Yes Hx Arthritis: Yes Hx Neck Problems: Yes Hx Back Problem: No Hx of Cardiovascular Prob: Yes Hypertension (High Blood Press: Yes Hx Congestive Heart Failure: No Hx of Respiratory Problem: No Hx of GI Problems: Yes (CHRONIC CONSTIPATION) Hx Gastroesophageal Reflux: Yes Hx Liver Disease: No Hx Gallbladder Disease: No Hx of Problems: Yes Hx Renal Failure: No Hx Infection: Yes (FREQUENT UTI) ?: Not Hx of Immuno Disor: No Hx of Endocrine Problems: No Hx Thyroid Disease: No Hx Diabetes: No Hx of Eye Probl: Yes (contact right eye) Hx of Cataracts: Bilateral Hx of Hearing or Ear Problems: No Hx Dental Problems: No Hx Psychiatric Problems: Yes Hx Anxiety: Yes Hx Depression: Yes Hx Blood Dyscrasias: No Hx of MDRO: No Hx of MRSA: No Hx of VRE: No Hx of CDIFF: No Hx of Tuberculosis: No Hx of Body/Medical Devices: No Blood Transfusion History Will receive Blood /Blood prod: Yes Hx Blood Transfusions: Yes (PLATELETS 04/26/16) Hx Blood Transfusion Reaction: No Medication Active Medications Cefazolin Sodium/ Dextrose (Ancef 2 Gm Premix) 50 ml @ 100 mls/hr Q8H IV Last administered on 04/28/16 08:03; Admin Dose 100 MLS/HR; Start 04/27/16 at 16:00; Stop 04/28/16 at 08:29; Status DC Losartan Potassium (Cozaar) 25 mg ONCE ONCE PO Last administered on 04/28/16 11 :57; Admin Dose 25 MG; Start 04/28/16 at 11:00; Stop 04/28/16 at 11:01; Status DC Losartan Potassium (Cozaar) 50 mg DAILY PO; Start 04/29/16 at 09:00 Polyethylene Glycol (Miralax) 17 gm DAILY PO Last administered on 04/28/16 09:32 ; Admin Dose 17 GM; Start 04/28/16 at 09:30 Mental Status Assessment Orientation: oriented to Self, oriented to Place, oriented to Time, oriented to Situation Mental Status: WFL: Thought processing, Language/Interactions, Problem-Solving , Impaired: Attention, Learning/Memory Additional: Absent for: Hallucinations, Delusions Adjustment/Coping Assessment Adjustment/Coping: Moderate: Anxiety Affect: Full Range Observation In terms of emotional functioning, the patient demonstrated minimal challenges. No signs of agitation, impulsivity or disinhibition were observed, nor was there remarkable evidence of a formal thought disorder or psychosis. There was mild evidence of a reactive depression presenting more as anxiety about her continued recovery. Thought content was free from suicidal, homicidal or paranoid ideation, and thought processes were logical and goal-directed. The patients mood was anxious, and the mood was stable and appropriate. The patient appears to possess adequate insight and awareness into their situation and within the limits of this brief evaluation, adequate judgment. LTG Status: Deferred STG Status: Deferred Team Members: Neuropsychologist Effort Assessment Effort: Average Cognition Assessment Rating: WNL: Awareness-Insight Adjustm, WFL: Language, Variable: Attention/ Processing, Immediate & Delayed Memor, Executive Observations The patient was alert and oriented to person, place, time and circumstances surrounding the recent hospitalization. She was unable to fully complete a Mini- Mental State Exam because she was not able to use her right hand. In terms of attention skills, the patient exhibited challenges. In general, the patient was able to remain on task and remember basic and complex verbal instructions. However, her initial registration of new information was below normal. In terms of memory functioning, the patient exhibited challenges. The patients initial registration of verbal information was below normal, and while she was able to improve their memory with repetition, she still exhibited borderline learning efficiencies. After a period of delay, the patient's ability to recall this information from memory was below normal. More specifically, on the Luria Memory Words Test-Short Form, the patients trail one performance was 2 of 7 words, trial five performance was 5 of 7 words, the patients Total Learning score was 18 (below cut-off), and the patients Delayed recall score was 2 of 7 words (below cut-off). In terms of speech and language skills, the patient demonstrated normal abilities. The patients initiated spontaneous conversation throughout the assessment. Speech was characterized by adequate prosody, grammar, articulation, volume and rate. No remarkable dysnomic or paraphasic errors were noted either during conversational speech or on confrontation naming tasks. Reading recognition skills were adequate; writing skills were not assessed. The patients comprehension for basic one- and two-stage commands was intact. In terms of problem-solving skills, the patient exhibited some challenges. The patients ability to understand abstraction reasoning was abnormal, as were her ability to interpret proverbial material Speed of information processing, as evaluated by both the Letter and Category Fluency Tests was normal. Summary/Diagnosis Summary This is a 71 year old right-handed woman status post TBI secondary to a fall on 04/25/16. From a neurocognitive perspective, she is not confused although she does have mild residual cognitive challenges of attention, learning efficiency and recall. These challenges should improve with time. She presently meet criteria for a Rancho Level VII, characterized by her ability to complete routine activities in a non-confused but automatic manner, and with the possibility that her skills may attenuate in unfamiliar environments. She is cognitively capable of making decisions of a legal, financial and medical nature. Impressions Mild neurocognitive disorder Initial Rancho Level: VII Diagnosis: (1) Mild neurocognitive disorder (2) Adjustment disorder with anxious mood Recommendations Recommendations Recommendations It is anticipated that with time and a return to a home setting that this patient's neurocognitive challenges will improve. Depending on whether she is in [place] or in [place], if she continues to have concerns about residual neurocognitive difficulties, I will be happy to either provide a more formal neuropsychological evaluation on an outpatient basis, or facilitate a referral to a neuropsychologist in [place]. Session Attendance Variance 60 minutes, which included record review, consultation with Trauma team, bedside evaluation, feedback to patient and , and report write-up. Erwin Vo PhD Apr 28, 2016 12:39
--- NOTE | 2016-04-28 15:13 | HHI.CCPN ---
Subjective Remarks/Hospital Course Patient doing well, no overnight issues. She does have mild confusion and is acting a little postconcussive. Admitted for right SDH, left IPH and right radius and ulna fracture which have been repaired. Objective Vital Signs Date Time Temp Pulse Resp B/P Pulse Ox O2 Delivery O2 Flow Rate FiO2 04/28/16 12:00 98.2 68 21 119/58 04/28/16 08:18 100 Nasal Cannula 2.00 Intake and Output 04/27/16 04/27/16 04/27/16 07:59 15:59 23:59 Intake Total 0 ml 1050 ml 650 ml Output Total 200 ml 1200 ml Balance 0 ml 850 ml -550 ml Result Diagram: 04/28/16 0428 04/28/16 0428 Objective Remarks well-nourished 71-year-old woman in no acute distress with very mild confusion Head - right periorbital ecchymosis pupils equal round reactive to light, sclerae nonicteric and conjunctiva is pink Chest - lungs clear to auscultation bilaterally, heart regular rate and rhythm, there is no chest wall tenderness or crepitus to palpation Abdomen - soft nontender nondistended Extremities - right upper extremity is in a splint, good capillary refill, no clubbing cyanosis or edema dorsalis pedis pulses are palpable bilaterally A/P Assessment and Plan 71-year-old woman with a closed right radius and ulnar fracture and a subdural hematoma on aspirin and Plavix -Continue to hold aspirin and Plavix -Transfer to the floor -Continue with physical therapy and occupational therapy -Likely discharge in the morning Apolinar Turner MD Apr 28, 2016 15:13
[2016-04-29 01:45] VITALS: BP 132/63; PULSE 93; RESP 18; TEMP 98.4; O2SAT 92
[2016-04-29 04:00] VITALS: BP 155/68; PULSE 84; RESP 20; TEMP 98.8; O2SAT 91
[2016-04-29] MEDS: ACETAMINOPHEN/HYDROcodone 325 MG/7.5 MG TAB PO PRN ×2 (06:09→13:40)
--- NOTE | 2016-04-29 07:21 | PD.ORT.PN ---
Subjective Subjective Remarks POD 2 s/p ORIF right ulna and radial head replacement -pain controlled. out of bed with assistance. awake and alert. no more confusion Objective Vitals Vital Signs Date Time Temp Pulse Resp B/P Pulse Ox O2 Delivery O2 Flow Rate FiO2 04/29/16 04:00 98.8 84 20 155/68 91 04/29/16 01:45 98.4 93 18 132/63 92 04/28/16 22:11 95 Nasal Cannula 2.00 04/28/16 21:15 97.6 79 20 168/77 94 04/28/16 16:00 97.7 64 18 121/73 04/28/16 16:00 97.1 72 18 128/60 96 04/28/16 16:00 64 04/28/16 14:00 66 04/28/16 12:00 98.2 68 21 119/58 04/28/16 12:00 68 04/28/16 10:00 75 04/28/16 08:18 100 Nasal Cannula 2.00 04/28/16 08:00 97.7 62 23 173/69 98 04/28/16 08:00 62 I/O 04/28/16 04/28/16 04/28/16 04/29/16 04/29/16 04/29/16 07:00 15:00 23:00 07:00 15:00 23:00 Intake Total 1000 ml 1210 ml 480 ml Output Total 1350 ml 860 ml Balance -350 ml 350 ml 480 ml Intake Oral 800 ml 1090 ml 480 ml IV Total 200 ml 120 ml Output Urine Total 1350 ml 860 ml # Voids 5 3 2 2 # Bowel Movements 0 0 Result Diagram: 04/28/16 0428 04/28/16 0428 Imaging Last [address] 04/25/166 Signed Impressions: Service Date/Time: Monday, April 25, 2016 22:07 - CONCLUSION: 1. 16mm faintly increased density in the posterior left temporal lobe and may represent a small parenchymal contusion. An underlying partly calcified mass could appear similar. Clinical surveillance and a followup nonemergent MRI of the brain with and without contrast recommended. 2. Otherwise no evidence of an acute intracranial abnormality. Chronic white matter changes are noted. Antonio Lau MD Objective Remarks RUE: + splint. moderate swelling of hand and fingers. NVI to median and ulnar nerve. Assessment & Plan Assessment and Plan 1) Right Proximal ulna/radius fx s/p ORIF and radial head replacement - POD 2 -NWB -maintain splint -keep clean and dry -plan for discharge home when cleared medically -f/ui with Rhina or JAILYN in 2 weeks Rubén Santillan Apr 29, 2016 07:20
[2016-04-29 08:00] VITALS: BP 157/69; PULSE 80; RESP 18; TEMP 96.4; O2SAT 95
[2016-04-29 08:18] VITALS: PULSE 82
[2016-04-29] MEDS ORDERED: LACTULOSE SYRUP 20 GM/30 ML CUP PO ONE (09:00)
[2016-04-29] MEDS ORDERED: LOSARTAN 25 MG TAB PO SCH (09:00)
[2016-04-29] MEDS: levETIRAcetam 500 MG TAB PO SCH ×2 (09:00→09:17)
[2016-04-29] MEDS: PROPRANOLOL HCL 20 MG TAB PO SCH (09:17)
[2016-04-29] MEDS: GABAPENTIN 300 MG CAP PO SCH (09:17)
[2016-04-29] MEDS: VENLAFAXINE HCL XR 75 MG CAP PO SCH (09:17)
[2016-04-29] MEDS: DOCUSATE SODIUM 100 MG CAP PO SCH (09:17)
[2016-04-29] MEDS: POLYETHYLENE GLYCOL 17 GM PKG PO SCH (09:18)
[2016-04-29] MEDS: FAMOTIDINE 20 MG TAB PO SCH (09:18)
--- NOTE | 2016-04-29 11:29 | HHI.FF ---
Face to Face Verification Diagnosis: (1) Intracranial hemorrhage (2) Closed right arm fracture Physical Therapy Order: Evaluate and Treat, Improve ambulation, Strength and gait training Occupational Therapy Order: Evaluate and Treat, Improve ADL, Gross motor coordination, Fine motor coordination Home Health Nursing Order: Nursing assessment with vital signs I have seen patient Savannah Ramon on 04/29/16. My clinical findings support the need for the requested home health care services because: Ltd mobility - disease progression Limited ability to care for self High risk of falls I certify that my clinical findings support that this patient is homebound because: Post-op weakness Impaired cognitive ability/safety Unsteady gait/balance Jonas Bhat Apr 29, 2016 11:29
--- NOTE | 2016-04-29 11:50 | HHI.PR ---
Neuropsych Emotional Emotional: Intact: Emotional, Hostile/Resentful, Irritable/Angry/Frustrate, Labile, Constricted/Blunted, Mild: Anxious/Fearful, Depressed/Sad Behavior Behavior: Intact: Behavior, Coping/Acceptance, Cooperative w/ Treatment, Motivation, Frustration Tolerance/[place], Impulsive/Agitated, Suicidal/Homicidal Risk Cognitive Cognitive: Intact: Confused/Orientation, Insight/Awareness, Memory, Mild: Cognitive, Attention/Concentration, Judgement/Problem-Solving Psychosocial Psychosocial: Intact: Psychosocial, Family/Other Adjustment, Realistic Expectation, Self-Esteem/Confidence Progress Notes/Response to Tx Contents of Sessions: Adjustment Time with Patient: 15 minutes Premorbid psychological status Premorbid Cognitive, Emotional and Behavioral Status: Stable. The patient has 12 years of education and a solid work history prior to this injury. The patient has no psychiatric difficulties, as described above. Substance abuse history is unremarkable. Behavioral Reactions of Patient and Family/Support System: Stable The patient and her family have a good understanding of the nature of the injury, and her continued recovery. Emotional/Behavioral Status of Patient and Family/Support System: Stable. Pertinent issues, if appropriate to this patients clinical care, are described in detail above. Maximizing acute care outcome This patient demonstrates mild neurocognitive issues of attention and processing speed, typical for an injury of the type she experienced. She is expected to make an excellent recovery from the neurocognitive challenges. Anticipated Problems Any anticipated problems she may experience post discharge will be her experience of mild difficulties with recall and slowed thinking. Again, it is fully expected that these issues will improve over time, and that from a neurocognitive perspective, she should be at baseline six months post. Treatment Plan This clinician will continue to follow with you throughout the course of this patients rehabilitation treatment, and I will be available to meet with the patients family/support system to facilitate their understanding and the ongoing care of their family member. The goals of neuropsychological intervention shall be both educational and supportive to the family/support system as is deemed clinically appropriate. I told the patient that in the event she wishes to have a more formal neuropsychological evaluation once she returns home to [place] for her to contact me and I will help her arrange one, or alternatively, during her next stay here in [place] when she returns to [place] later this year. [facility] Level: VII:Automatic-appropriate Diagnosis: (1) Mild neurocognitive disorder Status: Acute (2) Adjustment disorder with anxious mood Status: Acute Progress Note Narrative Ongoing follow-up with patient. Patient was alert, oriented, following commands , and demonstrating adequate carryover. She demonstrates good insight, awareness and judgment. I helped ease her concerns about her developing a neurocognitive disorder in the future as a result of her recent injury (quite unlikely), and offered her a way to follow up for evaluation in the future if she would so desire. Discharge Summary Reason for Referral: The patient is a 71 year old right handed female status post traumatic injury from a fall, who underwent baseline neuropsychological evaluation as described in her chart in order to assess cognitive, behavioral and emotional aspects of the injury. Diagnostic impressions at that time were that the patients cognitive and behavioral status met criteria for [place] Level VII, with mild residual cognitive issues consistent with a mild neurocognitive disorder. Past Medical History: Past medical, surgical and psychiatric histories are contained in her chart. Education/Learning Hx: The patient completed 12 years of education. There is no report of learning difficulties, grade repetitions or behavioral difficulties. The patient has a solid work history confined to skilled employment now retired. The patient is . 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 The patient lives in [place], [place]. Premorbid Cognitive, Emotional and Behavioral Status: Stable. See above. Behavioral Reactions of Patient and Family/Support System: Stable. See above. Emotional/Behavioral Status of Patient and Family/Support System: Stable. See above. Treatment Interventions: During the course of their acute care stay, this patient and their family/ support system were provided information concerning the neuropsychological aspects of the injury, education regarding course of recovery, and psychological support in the form of counseling with the person served and the family/support system as documented in the psychology service progress notes, as deemed clinically appropriate. Current, Cognitive, Emotional and Behavioral Status: Stable This patient has experienced a moderately severe injury, and will be adjusting to significant cognitive, emotional and behavioral challenges going forward. However, she is expected to make a full recovery. Impression at Discharge: The cognitive and behavioral status of this patient meets criteria for [place] Level VII. Mild Neurocognitive Disorder CODE: G31.84 The above listed diagnoses are supported by the following clinical criteria: Mild Neurocognitive Disorder: This person demonstrates a modeest cognitive decline from a previous level of estimated baseline performance in one or more cognitive domains (complex attention, executive functioning, learning and memory , language, perceptual-motor, or social cognition) based on the patients / informants report, further documented by todays testing results, with these cognitive deficits not interfering with the patients independence in everyday activities. Status of Family/Support System Adjustment: Stable. The patients family/ support system has a good understanding of any ongoing issues of adjustment given the nature of the injury. Post Acute Recommendations: If she desires, she may wish to seek an outpatient neuropsychological evaluation , perhaps six months post injury, or I would be happy to provide her this service on her return to the [facility] next year. Thank you for the opportunity to assist in this patients care. Erwin Vo, Ph.D., ABPP Board Certified in Clinical Neuropsychology [place] [employer] [place] Licensed Psychologist #[id number] Erwin Vo PhD Apr 29, 2016 11:50
[2016-04-29 12:00] VITALS: BP 139/63; PULSE 68; RESP 18; TEMP 96.8; O2SAT 95
--- NOTE | 2016-04-29 13:41 | HHI.DS ---
Discharge Summary Admission Date Apr 25, 2016 at 21:27 Discharge Date: Apr 29, 2016 Admitting Diagnosis Intracranial hemorrhage, right arm fracture Brief History S/P trauma: [place] onto RIGHT side. CBC/BMP: 04/28/16 0428 04/28/16 0428 Significant Findings Laboratory Tests Test 04/27/16 04/28/16 04:21 04:28 Red Blood Count 3.84 MIL/MM3 3.50 MIL/MM3 (4.00-5.30) (4.00-5.30) Potassium Level 3.4 MEQ/L (3.5-5.1) Estimat Glomerular Filtration 86 ML/MIN (>89) Rate Random Glucose 109 MG/DL (74-106) Hemoglobin 11.0 GM/DL (11.6-15.3) Hematocrit 32.1 % (35.0-46.0) Carbon Dioxide Level 32.5 MEQ/L (21.0-32.0) Imaging Last Impressions Head CT 04/27/16 0600 Signed Impressions: Service Date/Time: Wednesday, April 27, 2016 04:38 - CONCLUSION: 1. Stable focus of high attenuation involving the left temporal lobe. This could relate to a small intraparenchymal hemorrhage. A followup outpatient MRI is suggested to further characterize this lesion if this persists. Arash Velazquez Jr., MD Elbow X-Ray 04/27/16 0000 Signed Impressions: Service Date/Time: Wednesday, April 27, 2016 08:57 - CONCLUSION: 1. Postoperative changes at the right elbow as above. Quang Swenson MD Wrist X-Ray 04/26/16 0000 Signed Impressions: Service Date/Time: Tuesday, April 26, 2016 16:44 - CONCLUSION: 1. No acute findings. Osteoarthritis of the first carpometacarpal joint. Quang Swenson MD Shoulder X-Ray 04/26/16 0000 Signed Impressions: Service Date/Time: Tuesday, April 26, 2016 16:50 - CONCLUSION: Normal examination for a patient of this age. Quang Swenson MD PE at Discharge GENERAL:71 year old well-nourished, well-developed female lying in bed. SKIN: Warm and dry. HEAD: Normocephalic. ENT: No nasal bleeding or discharge. Mucous membranes pink and moist. NECK: Trachea midline. No JVD. CARDIOVASCULAR: Regular rate and rhythm. RESPIRATORY: No accessory muscle use. Lungs clear and diminished to auscultation. Breath sounds equal bilaterally. GASTROINTESTINAL: Abdomen soft, non-tender, nondistended. + BS MUSCULOSKELETAL: Extremities without cyanosis or edema. RIGHT arm with soft splint and sling in place. +peripheral pulses x 4, + sensation. MAEW. NEUROLOGICAL: Awake, oriented x3. Normal speech. Hospital Course [place]: Patient sustained a fall while walking on the beach. She tripped and fell , landing on her RIGHT side. She was transferred from [facility] for Trauma admission. INJURIES: LEFT frontotemporal Intraparenchymal hemorrhage (1 cm) Questionable RIGHT frontal SDH RIGHT radius and ulnar fx 04/27: Repeat CT head - stable PMHx: Hyperlipidemia, HTN, Chronic pain, GERD, depression. 04/27: ORIF RIGHT wrist Diet: ADA Regular, tolerating well. Pulm: IS, encouraged home use. Pain: [place]. Neurontin. Pain controlled. Activity: OOB. (NWB RUE) Ambulating unassisted to restroom. GI: Pepcid Bowel: Colace. MOM. No BM. Lactulose x1. If no BM give Mag Citrate x1. DVT: SCD's Confusion improved. F/U with Neurosurgery in 1 week. Hold Plavix and ASA until cleared by Neurosurgery. F/U with Ortho outpatient. Patient is visiting from [place] with her and is staying in [place] for another month. Patient is clear from Trauma surgery standpoint to safely discharge home with [facility] PT/OT. Pt Condition on Discharge: Stable Discharge Disposition: Disch w/ Home Health Serv Discharge Instructions DIET: Follow Instructions for: Diabetic Diet Activities you can perform: Non Weight Bearing Other Activity Instructions: Non-weight bearing to LEFT upper arm Jonas Bhat Apr 29, 2016 13:41 Monik Waller MD May 05, 2016 16:04
[2016-04-29] MEDS ORDERED: MAGNESIUM CITRATE SOLN 300 ML BTL PO ONE (15:00)
[2016-04-29] MEDS ORDERED: VENLAFAXINE HCL XR 37.5 MG CAP PO SCH (21:00)
--- NOTE | 2016-04-30 | HHI.NSPN ---
History Chief Complaint: right-sided headache and neck pain Interval History 71-year-old female who reportedly tripped and fell forward on the beach on 2016 without loss of consciousness. Mild confusion and repetitive speech following the incident. Transferred from [facility] after initial CT scan revealed probable left temporal contusion. Exam Results Vital Signs Date Time Temp Pulse Resp B/P Pulse Ox O2 Delivery O2 Flow Rate FiO2 04/29/16 12:00 96.8 68 18 139/63 95 04/29/16 08:30 Nasal Cannula 2.00 Intake and Output 04/28/16 04/28/16 04/29/16 08:00 16:00 00:00 Intake Total 1000 ml 1210 ml 480 ml Output Total 1350 ml 860 ml Balance -350 ml 350 ml 480 ml Physical Examination Mild right frontal and facial contusion and ecchymosis. Minimal right periorbital edema. No CSF otorrhea or rhinorrhea. Mild tenderness right cervical paraspinous musculature. Right shoulder tenderness Right upper extremity in sling. Moderate right distal upper extremity edema and ecchymosis. Awake and alert Oriented X place, month, year, most recent holiday. She knows her home address and telephone number The patient and her indicate that she has no significant residual confusion this morning. Speech is clear Conversant and appropriate Follow simple commands well Answers questions appropriately Reasonable judgment and insight Recent and remote memory are intact No evidence of anxiety or depression Pupils are equal and reactive to accommodation. Extra-ocular movements, visual frank to confrontation, facial sensorimotor, tongue, palate, sternocleidomastoid testing, hearing to finger rub testing, and bilateral shoulder shrug are all intact. Sensation is intact to light touch in all extremities except right upper extremity not fully tested due to swelling in place. Strength normal major flexion and extension groups all extremities except right upper extremity not tested due to orthopedic injuries. Malissa's absent bilaterally No ankle clonus Plantar responses absent bilateral Fine motor movements intact left upper extremity-difficult to test right upper extremity due to orthopedic injuries Medical Decision Making Impression and Plan Impression: 1. Concussion. 2. 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 3. Mild confusion initially noted postoperative result today. Plan: Findings were discussed with the patient and her this morning No focal deficit or residual confusion. Stable for discharge home today Continue to avoid aspirin, NSAIDs, vitamin E, fish oil for the next 2 weeks. Patient denies alcohol use. Signs and symptoms to watch for discussed with the patient and her . They will return to the emergency room or contact our office if any significant changes occur. I have answered all of their questions She will be seen back as an outpatient as needed Higinio Green MD Apr 30, 2016 00:00
== END 2016-04-29 17:11 | disposition home health service (06) | DRG 983 ==
LOC: NEPE 20:42 → NEDA 21:27 → NEDH 04-26 01:27 → N03B 04-26 08:23 → N05B 04-28 16:07
PROVIDERS: ADMIT Surgery; ATTEND Surgery
PROC: 30233R1 Transfusion of Nonautologous Platelets into Peripheral Vein, Percutaneous Approach (ICD-10-PCS; 2016-04-26)
PROC: 0PSK04Z Reposition Right Ulna with Internal Fixation Device, Open Approach (ICD-10-PCS; 2016-04-27)
PROC: 0PRH0JZ Replacement of Right Radius with Synthetic Substitute, Open Approach (ICD-10-PCS; principal; 2016-04-27 07:38)
DX: S06.320A Contusion and laceration of left cerebrum without loss of consciousness, initial encounter (principal); I10 Essential (primary) hypertension; S52.121A Displaced fracture of head of right radius, initial encounter for closed fracture; S52.001A Unspecified fracture of upper end of right ulna, initial encounter for closed fracture; G89.29 Other chronic pain; G56.91 Unspecified mononeuropathy of right upper limb; K21.9 Gastro-esophageal reflux disease without esophagitis; F32.9 Major depressive disorder, single episode, unspecified; M54.2 Cervicalgia; R20.0 Anesthesia of skin; E78.5 Hyperlipidemia, unspecified; F43.22 Adjustment disorder with anxiety; W18.09XA Striking against other object with subsequent fall, initial encounter; Y93.01 Activity, walking, marching and hiking; Y92.832 Beach as the place of occurrence of the external cause
CPT/HCPCS: 36430; 70450; 73030; 73070; 73100; 76000; 80048; 83735; 85027; 86850; 86900; 86901; 87641; 93005; 94150; 99285; C1713; J0131; J0690; J1170; J1200; J1580; J2270; J2405; J3010; J3370; J3480; J7050; P9035